=== PATIENT | male | born 1980 | race American Indian/Alaskan Native ===

== ENCOUNTER 2019-10-14 01:34 | Emergency (ER) | payer OTHER ==
--- NOTE | 2019-10-14 02:44 | Emergency Department Report ---
HPI - General Chief Complaint: Upper Respiratory Infection Time Seen by Provider: 10/14/19 01:55 - HPI HPI: 39-year-old -[place] male presents to the emergency department with complaint of a 1 day history of a mixed dry and productive cough. He also has concern for exposure to Covid-19 as he says that his daughter just tested positive for this today. She had previously been diagnosed with pneumonia and what ever treatments have not been working. She went to another emergency department today where he says she was told she was positive for this virus. Patient says that he was told by work that he could not return until he was "cleared" from having this virus. No past medical history. He denies any fever, shortness of breath. Denies any tobacco or illicit drug use. He has not taken anything for his symptoms prior to presentation today. ED Past Medical Hx - Past Medical History Previous Medical History?: Yes Hx Arthritis: Yes - Surgical History Past Surgical History?: Yes Additional Surgical History: bilat knee - Social History Smoking Status: Never Smoker Substance Use Type: Alcohol ED Review of Systems ROS: Stated complaint: EXPOSURE/SOUZA Other details as noted in HPI Comment: All other systems reviewed and negative Constitutional: denies: chills, fever Respiratory: cough. denies: shortness of breath Cardiovascular: denies: chest pain, palpitations Gastrointestinal: denies: abdominal pain, vomiting Musculoskeletal: denies: back pain, myalgia Neurological: denies: headache, weakness Physical Exam - Physical Exam Vital Signs: Vital Signs 10/14/19 01:37 Temperature 97.9 F Pulse Rate 78 Respiratory 18 Rate Physical Exam: GENERAL: The patient is well-developed well-nourished. HENT: Normocephalic. Atraumatic. Patient has moist mucous membranes. EYES: Extraocular motions are intact. NECK: Supple. Trachea is midline. CHEST/LUNGS: Clear to auscultation. No tachypnea or accessory muscle use. No cough heard during examination. There is no respiratory distress noted. HEART/CARDIOVASCULAR: Regular. There is no tachycardia. ABDOMEN: Abdomen is soft, nontender. Patient has normal bowel sounds. SKIN: Skin is warm and dry. NEURO: The patient is awake, alert, and oriented. The patient is cooperative. Normal speech. MUSCULOSKELETAL: There is no tenderness or deformity. There is no evidence of acute injury. ED Course Vital Signs 10/14/19 01:37 Temperature 97.9 F Pulse Rate 78 Respiratory 18 Rate ED Medical Decision Making - Radiology Data Radiology results: image reviewed interpreted by me: Chest x-ray does not show any acute process. There are no pleural effusions, obvious pneumonia and there is no pneumothorax. - Medical Decision Making This patient presents to the emergency department with complaint of developing a slight cough, and needing clearance to return to work, after his daughter allegedly was positive for Covid-19. On examination the patient does not have any shortness of breath, rhonchi, wheezing and I did not hear any coughing. Chest x-ray was done that does not show any pleural effusions, pneumonia, focal consolidation, pneumothorax, or any other acute process. His vital signs been stable throughout his ED course including being afebrile and no hypoxia. For these reasons the patient does not appear to require admission at this time. He has been instructed to go into a 14-day self-isolation/quarantine. We also discussed contacting the [facility] for any further outpatient testing or monitoring. However, he has also been instructed to return to the emergency department immediately with any development of shortness of breath, high intractable fever, or with any acute distress. - Differential Diagnosis pneumonia, viral uri, covid-19, bronchitis Critical Care Time: No Critical care attestation.: If time is entered above; I have spent that time in minutes in the direct care of this critically ill patient, excluding procedure time. ED Disposition Clinical Impression: Exposure to 2019 novel coronavirus, Cough Disposition: - TO HOME OR SELFCARE Is pt being admited?: No Condition: Stable Instructions: Upper Respiratory Infection (ED) Additional Instructions: Due to your exposure to someone who has tested positive for Covid-19, you will need to quarantine your self/self isolate for the next 14 days. Please contact the [facility] regarding any outpatient follow-up or for the possibility of testing. However, you will need to return to the emergency department immediately with any significant shortness of breath, low oxygen saturation, or high intractable fever. Referrals: PRIMARY CARE, [Primary Care Provider] - 3-5 Days Forms: Work/School Release Form(ED) Time of Disposition: 03:57
[2019-10-14 03:49] VITALS: BP 132/91
--- NOTE | 2019-10-14 03:53 | XRay Report ---
CHEST 1 VIEW INDICATION / CLINICAL INFORMATION: cough. COMPARISON: None available. FINDINGS: SUPPORT DEVICES: None. HEART / MEDIASTINUM: No significant abnormality. LUNGS / PLEURA: No significant pulmonary or pleural abnormality. No pneumothorax. ADDITIONAL FINDINGS: No significant additional findings. IMPRESSION: No acute pulmonary or pleural abnormality Signer Name: Brendon Nunez MD FACR Signed: 10/14/2019 3:49 AM Workstation Name: [email or web address]
== END 2019-10-14 04:29 | disposition home or self-care (01) ==
LOC: ED 01:34
DX: Z20.828 Contact with and (suspected) exposure to other viral communicable diseases (principal); R05 Cough; M19.90 Unspecified osteoarthritis, unspecified site
CPT/HCPCS: 71045